=== PATIENT | female | born 1985 | race Caucasian/White ===

== ENCOUNTER 2018-04-02 06:45 | Emergency (ER) | payer OTHER ==
--- NOTE | 2018-04-02 07:07 | ED Physician Documentation ---
Upper Extremity Injury - HISTORIAN Historian: patient - HPI Stated Complaint: Rt wrist/elbow pain Chief Complaint: Upper Back Injury/ Pain Onset: yesterday (at 2014) Where: work Severity: moderate Duration: persistent since Context: crush (forearm shut in door) Associated Symptoms: denies: tingling, numbness distally, loss of power to arms Modifying Factors: pain on movement - ROS CONST: no problems CVS/RESP: denies: chest pain, shortness of breath NEURO: denies: headache MS/SKIN/LYMPH: denies: neck pain, back pain GI/: denies: nausea, vomiting - PAST HX Past History: Rt handed Allergies/Adverse Reactions: Allergies Allergy/AdvReac Type Severity Reaction Status Date / Time cephalexin monohydrate Allergy Verified 04/02/18 06:52 [From Keflex] clindamycin Allergy Verified 04/02/18 06:52 tetracycline Allergy Verified 04/02/18 06:52 walnut Allergy Verified 04/02/18 06:52 PCN Allergy Uncoded 04/02/18 06:52 sulfa drugs Allergy Uncoded 04/02/18 06:52 Home Medications: Ambulatory Orders Medication Instructions Recorded Omeprazole/Sodium Bicarbonate 20 mg PO D 04/02/18 [Zegerid] - SOCIAL HX Smoking History: non-smoker Alcohol Use: none Drug Use: none - FAMILY HX Family History: none - VITAL SIGNS Vital Signs: Vital Signs Temp Pulse Resp BP Pulse Ox 98.6 F 98 H 16 98 04/02/18 06:46 04/02/18 06:46 04/02/18 06:46 04/02/18 06:46 - REVIEWED ASSESSMENTS Nursing Assessment Reviewed: Yes Vitals Reviewed: Yes ED Results Lab/Radiology - Radiology Radiology Impressions: Examination: Plain film right elbow History: Pt states elbow was "squished" in door last night. Majority of pain on lateral side. (Hx) Comparison exams: None provided Findings: 2 views of the right elbow demonstrate normal cortical margins. No fracture. No dislocation. Radial head is within normal limits. No joint effusion Impression: No acute osseous abnormality. Electronically signed on Apr 02, 2018 7:38:46 AM ROTARY SWAGING MACHINE OPERATOR by: Jasbir Pimentel Examination: Plain film right wrist History: Pt states she hit wrist on door frame last night. Majority of pain on lateral side. (Hx) Comparison exams: None available Findings: 3 views of the right wrist demonstrate normal cortical margins. No fracture. No dislocation. Ulnar styloid unfused ossicle. No soft tissue abnormality. Impression: No acute osseous abnormality Electronically signed on Apr 02, 2018 7:39:55 AM ROTARY SWAGING MACHINE OPERATOR by: Jasbir Pimentel - Orders Orders: ED Orders Category Date Time Status ELBOW 2 VIEWS [RAD] Stat Exams 04/02/18 Completed WRIST 3 VIEWS OR MORE [RAD] Stat Exams 04/02/18 Completed Upper Extremity Injury Physic - Physical Exam General Appearance: no acute distress, alert Hand: normal inspection, non-tender Wrist: bone tenderness, soft tissue tenderness (distal ulna) Elbow/Forearm: ecchymosis (ulnar side) Shoulder: normal inspection, non-tender Neuro/Vascular/Tendon: no vascular compromise, motor nml, sensation nml Skin: warm,dry Head/ENT: nml inspection Neck/Back: nml inspection Resp/CVS: chest non-tender, heart sounds nml Abdomen: non-tender. No: tenderness Discharge Clincal Impression: Wrist strain Qualifiers: Encounter type: initial encounter Laterality: right Qualified Code(s): S66.911A - Strain of unspecified muscle, fascia and tendon at wrist and hand level, right hand, initial encounter Referrals: Patrick Petit MD [Primary Care Provider] - 2 Days Additional Instructions: 1. Hunter bandage as need for comfort 2. Apply ice to affected area 3. Tylenol and/or Ibuprofen as needed for pain 4. Follow up with PCP as needed. Condition: Stable Disposition: 01 HOME, SELF-CARE Decision to Admit: NO Date of Decison to Admit: 04/02/18 Decision Time: 07:48
--- NOTE | 2018-04-02 07:42 | Diagnostic Imaging Report ---
REID VELAZQUEZ [facility] [address] [facility] [address] [place] [phone]. [id number] Report Submission Date: Apr 02, 2018 7:39:55 AM JEWEL BEARING GRINDER Patient Study Name: TENA LAMBERT Date: Apr 02, 2018 7:05:03 AM JEWEL BEARING GRINDER Modality Type: DX Gender: F Description: UPPER EXTREMITY : 85 Institution: [facility] Physician: REID VELAZQUEZ Examination: Plain film right wrist History: Pt states she hit wrist on door frame last night. Majority of pain on lateral side. (Hx) Comparison exams: None available Findings: 3 views of the right wrist demonstrate normal cortical margins. No fracture. No dislocation. Ulnar styloid unfused ossicle. No soft tissue abnormality. Impression: No acute osseous abnormality Electronically signed on Apr 02, 2018 7:39:55 AM JEWEL BEARING GRINDER by: Jasbir PATIÑO
--- NOTE | 2018-04-02 07:43 | Diagnostic Imaging Report ---
REID VELAZQUEZ [facility] [address] [facility] [address] [place] [address]. [phone] Report Submission Date: Apr 02, 2018 7:38:46 AM FINISHER SCREWDOWN Patient Study Name: TENA LAMBERT Date: Apr 02, 2018 7:02:38 AM FINISHER SCREWDOWN Modality Type: DX Gender: F Description: UPPER EXTREMITY : 85 Institution: [facility] Physician: REID VELAZQUEZ Examination: Plain film right elbow History: Pt states elbow was "squished" in door last night. Majority of pain on lateral side. (Hx) Comparison exams: None provided Findings: 2 views of the right elbow demonstrate normal cortical margins. No fracture. No dislocation. Radial head is within normal limits. No joint effusion Impression: No acute osseous abnormality. Electronically signed on Apr 02, 2018 7:38:46 AM FINISHER SCREWDOWN by: Jasbir PATIÑO
== END 2018-04-02 07:50 | disposition home or self-care (01) ==
LOC: ED 06:45
DX: S66.911A Strain of unspecified muscle, fascia and tendon at wrist and hand level, right hand, initial encounter (principal); W23.0XXA Caught, crushed, jammed, or pinched between moving objects, initial encounter; Y93.9 Activity, unspecified; Y92.9 Unspecified place or not applicable; Y99.0 Civilian activity done for income or pay
CPT/HCPCS: 73070; 73110; 99283; 99284

== ENCOUNTER 2018-08-07 10:31 | Outpatient (CLI) | payer BC ==
--- NOTE | 2018-08-07 13:06 | Diagnostic Imaging Report ---
<p>Your browser does not support iframes.</p> <p>Your browser does not support iframes.</p> DALE DUMONT [facility] [address] [facility] [address] [place], [place]. [address] Report Submission Date: Aug 07, 2018 11:02:36 AM CDT Patient Study Name: TENA LAMBERT Date: Aug 07, 2018 10:39:09 AM CDT Modality Type: US Gender: F Description: US ABDOMEN LIMITED : 85 Institution: [facility] Physician: DALE DUMONT Examination: Ultrasound gallbladder History: NAUSEA AND VOMITING FOR 2 WEEKS STABBING PAIN IN RUQ AFTER EATING Findings: Sonographic evaluation of the right upper quadrant demonstrates the gallbladder without stones or sludge. Gallbladder wall measures 1.9 mm. Common bile duct measures 4.5 mm. No intrahepatic biliary dilation. Liver demonstrates normal homogeneous echogenicity. No mass or cyst. Normal flow on color analysis. Normal portal vein Doppler waveform. Right kidney measures 9.9 cm in length. No cortical mass or cyst. No hydronephrosis. Pancreatic region without gross irregularity. Impression: No gallstone or obstruction. Unremarkable abdominal ultrasound. Electronically signed on Aug 07, 2018 11:02:36 AM CDT by: Jasbir PATIÑO
== END 2018-08-07 10:45 ==
LOC: RAD 10:31
PROVIDERS: ATTEND Family Medicine
DX: R10.11 Right upper quadrant pain (principal)
CPT/HCPCS: 76705

== ENCOUNTER 2019-04-19 12:37 | Outpatient (CLI) | payer BC ==
--- NOTE | 2019-04-19 16:36 | Diagnostic Imaging Report ---
PATIENT MR#: [id number] PATIENT PATIENT NAME: TENA LAMBERT DATE OF : 1985 REFERRING PHYSICIAN: WAYNE COLLAZO EXAM DATE: 04/19/2019 ACCESSION NUMBER: [id number] EXAM DESCRIPTION: ANKLE 3 VIEWS OR MORE CLINICAL HISTORY: RT ANKLE PAIN COMPARISON: No study for comparison is available at the time of interpretation. TECHNIQUE: DX right ankle, 3 views Osseous structures: The osseous structures are normal with no evidence of fracture or dislocation. Th ere is no osseous lesion or periosteal reaction. Joint spaces: The bones are well aligned. No articular surface abnormality is noted. Soft tissues: There is normal appearance of the soft tissues with no radiopaque foreign body seen. IMPRESSION: No fracture. Read by: Dr. Nick Abdalla Transcribed by: Nick Abdalla Transcribed Date: 04/19/2019 4:35:10 PM Electronically signed by: Dr. Nick Abdalla Date signed: 04/19/2019 4:35:10 PM
== END 2019-04-19 12:42 ==
LOC: RAD 12:37
PROVIDERS: ATTEND Podiatrist Foot & Ankle Surgery
DX: M25.571 Pain in right ankle and joints of right foot (principal)
CPT/HCPCS: 73610

== ENCOUNTER 2019-04-22 09:34 | Outpatient (CLI) | payer BC ==
--- NOTE | 2019-04-26 15:17 | CONSULTATION REPORT ---
DATE OF CONSULTATION: 04/22/2019 SUBJECTIVE: Soheila is a 34-year-old female presenting to the clinic today for a first time visit for an ankle sprain that happened about two weeks ago. The patient states that she was stepping down onto a step and rolled it inward and she had x-rays done recently that I ordered that were to look for any signs of fracture and they were negative for any sign of fracture osseous malalignment or joint malalignment. The patient has been doing ice, ibuprofen and DENISE wraps and states that the DENISE wraps seem to help when she does use that. She states she only use DENISE wraps when it really hurts. She is saying that she is consistently having achiness and sharp pain at times in the area at the tibia fibular joint on the right ankle. This is happening anteriorly just above and inside the lateral malleolus. The patient does not admit to any other issues or problems. She is walking around in regular shoes at this time, but is having pain doing so. She does not admit to any fever, chills, nausea, vomiting, shortness of breath or chest pain. OBJECTIVE: Vitals: Temperature 97.4, heart rate 90, respiration rate 14, blood pressure 125/78. O2 sat 99% on room air. Height 5 feet 2 inches. Weight 130 pounds. Vascular: 2+ DP and PT pulses, right foot. Capillary refill time less than 3 seconds to the toes right foot. There is really mild if any edema noted on the right foot. Dermatologic: There is no ecchymosis or erythema or open lesions or excoriations or hyperkeratosis noted or any other skin abnormality or skin discoloration noted right foot or ankle. Musculoskeletal: There is significant pain on palpation noted at the tib-fib joint of the right ankle anteriorly just above the ankle joint. The patient also has some pain slightly at the anterior talofibular ligament area. The patient also has pain with dorsiflexion of the lesser toes of the right foot with the pain being located at the anterior ankle likely at the extensor digitorum longus tendon area. The patient also has slight pain in the same area with dorsiflexion of the ankle against resistance. The patient has 5/5 muscle strength against resistance in the dorsiflexion and plantar flexion direction. The patient has mild pain with range of motion of the ankle in that same area as above. She has no pain at the calcaneofibular ligament or the posterior talofibular ligament. The patient has no other gross abnormalities noted. Neurologic: Light touch sensation is intact to the toes plantarly and dorsally and symmetric at all toes. ASSESSMENT AND PLAN: 1. Right ankle sprain. 2. Right extensor digitorum longus tendonitis at the anterior ankle. The patient and I had discussed with her the importance of immobilizing this. She is unable to drive with her foot in a boot and therefore we are going to use a lace-up and strap-up ankle brace that we gave her a prescription for today. She is to wear that at all times for three to four weeks. We will see her in three weeks to see what kind of improvement we are getting. If there is no improvement or not enough improvement then we will consider an MRI to make sure we are not missing something. We also discussed the possibility of an OCD lesion, but that is likely not the case. Again we will consider an MRI at the next visit if needed. She is to continue ice and ibuprofen etc. Caden Beatty D.P.M./[employer] [id number] /mab MTDD
== END 2019-04-22 10:05 ==
LOC: POD 09:34
PROVIDERS: ATTEND Podiatrist Foot & Ankle Surgery
DX: S93.401A Sprain of unspecified ligament of right ankle, initial encounter (principal); M77.51 Other enthesopathy of right foot and ankle; X50.9XXA Other and unspecified overexertion or strenuous movements or postures, initial encounter
CPT/HCPCS: 99202